=== PATIENT | female | born 1990 | race Caucasian/White ===

== ENCOUNTER → 2016-04-08 | Outpatient (CLI) | payer OTHER ==
[~2016-04-08] MED LIST: PREN29TA PO
== END ==
LOC: HPND 07:20
PROVIDERS: ATTEND Obstetrics & Gynecology
DX: O28.3 Abnormal ultrasonic finding on antenatal screening of mother (principal); Z3A.12 12 weeks gestation of pregnancy
CPT/HCPCS: 76813

== ENCOUNTER → 2016-05-06 | Outpatient (CLI) | payer OTHER | LOC: HPND 07:47 | PROVIDERS: ATTEND Obstetrics & Gynecology | DX: O35.8XX0 Maternal care for other (suspected) fetal abnormality and damage, not applicable or unspecified (principal); O28.5 Abnormal chromosomal and genetic finding on antenatal screening of mother; Z3A.16 16 weeks gestation of pregnancy | CPT/HCPCS: 76811 ==

== ENCOUNTER 2016-05-23 16:10 | Emergency (ER) | payer OTHER ==
[~2016-05-23] VITALS: Ht 160 cm; Wt 56.0 kg
[2016-05-23 16:14] VITALS: BP 118/72; PULSE 86; RESP 20; TEMP 97.8; O2SAT 98
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
[2016-05-23] MEDS ORDERED: PREN29TA PO (22:35)
[2016-05-23 22:57] LABS: HEMATOCRIT 33.3 % (35.0-46.0); MEAN CELL VOLUME 83.5 FL (80.0-100.0); MEAN CORPUSCULAR HEMOGLOBIN 28.9 PG (27.0-34.0); MEAN CORPUSCULAR HGB CONC 34.6 % (32.0-36.0); PLATELET COUNT 255 TH/MM3 (150-450); RED BLOOD COUNT 3.99 MIL/MM3 (4.00-5.30); RED CELL DISTRIBUTION WIDTH 14.4 % (11.6-17.2); REVIEW FLAG FINAL; WHITE BLOOD COUNT 8.3 TH/MM3 (4.0-11.0)
[2016-05-23 23:16] LABS: BACTERIA, URINE OCC /hpf; BLOOD, URINE NEG (NEG); COMMENT (UR) CULT NOT INDICATED; CULTURE IF INDICATED CULT NOT INDICATED; GLUCOSE,URINE NEG (NEG); KETONE, URINE 150 mg/dL (NEG); MUCUS URINE FEW /lpf (OCC); NITRITE,URINE NEG (NEG); PH, URINE 5.5 (5.0-8.5); SQUAMOUS EPITHELIAL CELL URINE 5 /hpf (0-5); URINE COLOR YELLOW (YELLW/STRAW)
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
== END 2016-05-24 00:47 | disposition home or self-care (01) ==
LOC: NEPC 16:10 → HOBED 05-24 00:47
DX: O9A.212 Injury, poisoning and certain other consequences of external causes complicating pregnancy, second trimester (principal); S16.1XXA Strain of muscle, fascia and tendon at neck level, initial encounter; V49.40XA Driver injured in collision with unspecified motor vehicles in traffic accident, initial encounter; Y92.488 Other paved roadways as the place of occurrence of the external cause; Z3A.19 19 weeks gestation of pregnancy
CPT/HCPCS: 72125; 76815; 81001; 85027; 86850; 86900; 86901; 90384; 99284; L0150; J2790

== ENCOUNTER → 2016-06-03 | Outpatient (CLI) | payer OTHER | LOC: HPND 08:12 | PROVIDERS: ATTEND Obstetrics & Gynecology | DX: O35.1XX0 Maternal care for (suspected) chromosomal abnormality in fetus, not applicable or unspecified (principal); O35.8XX0 Maternal care for other (suspected) fetal abnormality and damage, not applicable or unspecified; O28.3 Abnormal ultrasonic finding on antenatal screening of mother; O28.0 Abnormal hematological finding on antenatal screening of mother | CPT/HCPCS: 76816; 76825; 76827; 93325 ==

== ENCOUNTER 2016-11-04 05:39 | Emergency (ER) | payer OTHER ==
[~2016-11-04] VITALS: Ht 160 cm; Wt 60.0 kg
[2016-11-04 05:41] VITALS: BP 120/82; PULSE 120; RESP 16; TEMP 98.4; O2SAT 95
[2016-11-04] MEDS ORDERED: CORT15T TOPICAL (06:02)
[2016-11-04] MEDS ORDERED: CLIN1CAP6 PO (06:02)
[2016-11-04 06:06] VITALS: TEMP 99.3
[2016-11-04 06:27] VITALS: O2SAT 98
[2016-11-04] MEDS ORDERED: KETOROLAC TROMETHAMINE 30 MG/ML (IVP) VIAL IV PUSH ONE ×2 (06:30→10:15)
[2016-11-04] MEDS ORDERED: ONDANSETRON HCL 4 MG/2 ML VIAL IV ONE (06:30)
[2016-11-04] MEDS ORDERED: SODIUM CHLOR 0.9% 1000 ML INJ 1,000 ML IV ONE (06:30)
--- NOTE | 2016-11-04 06:41 | RADRPT ---
EXAM DATE/TIME: 11/04/2016 06:32 [facility] COMPARISON: No previous studies available for comparison. INDICATIONS : Bilateral breast pain. MEDICAL HISTORY : None. SURGICAL HISTORY : None. ENCOUNTER: Initial ACUITY: 3 days PAIN SCORE: 9/10 LOCATION: Bilateral chest FINDINGS: A single view of the chest demonstrates the lungs to be symmetrically aerated without evidence of mas s, infiltrate or effusion. The cardiomediastinal contours are unremarkable. Osseous structures are intact. CONCLUSION: No acute disease. Henri Donnelly MD on November 04, 2016 at 6:39 Board Certified Radiologist. This report was verified electronically.
--- NOTE | 2016-11-04 06:47 | PD ---
HPI Chief Complaint: Pain: Acute or Chronic Time Seen by Provider: 05:51 Travel History International Travel<30 days: No Contact w/Intl Traveler<30days: No Traveled to known affect area: No History of Present Illness HPI The patient is a 26 year old female who presents to the [facility] emergency department with a history of breast pain that she reports began in the right breast 2 weeks ago. The patient reports that she did deliver vaginally a trisomy 21 child on September 16. 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 The patient reports that she has been attempting to wean down her pumping sessions. She reports that she produces a significant amount of milk. She reports that she has been in consultation with the middleware consultant as well as been seen by her SHOEMAKER CUSTOM at [facility] and also evaluated by a [facility] clinic twice. The patient reports that over the last 2 weeks she's had a fever with a MAXIMUM TEMPERATURE of 100.9. She reports that she's had chills and body aches. She reports that both breasts at this time her. The left breast is larger than the right. She reports that she' s had intermittent redness usually in a certain quadrant of the breast. She reports that she's had a rash over the breast that has improved with treatment with an oral antifungal and topical orders. The patient reports that when she saw her rn observation she was told that it was likely related to breast engorgement. She was encouraged to continue to calm and wean as tolerated. The patient reports that she went for a second opinion at a [facility] clinic and was diagnosed with mastitis. The patient was treated with amoxicillin which was not helping, and on of this past week she went to the [facility] clinic again and was given clindamycin. She reports that she's had nausea without vomiting. She reports that she had diarrhea twice on Thursday. She reports that she had a normal bowel movement last yesterday. The patient reports that she became concerned when the pain increased again and her temperature went up to 100.9 prior to arrival. She denies taking any pain medication over the last 2 days as it upsets her stomach. Otherwise on review of systems, the patient denies any recent cough, congestion, shortness of breath except for what she reports is related to the pressure of her breasts on her chest, vomiting, abdominal pain, lower extremity edema, or calf pain. She denies having any urinary or neurologic symptoms. [facility] Past Medical History Narrative Medical The patient's past medical history is significant for none. Diabetes: No Patient Takes Glucophage: No Diminished Hearing: No Medical other: Yes (MASTITIS) Immunizations Current: Yes Tetanus Vaccination: > 5 Years Influenza Vaccination: No ?: Not LMP: 11/03/16 : 1 Para: 1 Past Surgical History Narrative Surgical The patient's past surgical history is significant for a wisdom teeth extraction. Oral Surgery: Yes (WISDOM TEETH) Social History Alcohol Use: No Tobacco Use: No Substance Use: No Allergies-Medications (Allergen,Severity, Reaction): Coded Allergies: latex (Verified Allergy, Severe, Hives, 11/04/16) Reported Meds & Prescriptions Reported Meds & Active Scripts Active Reported Cortisporin Topical (Neomycin/Polymyxin/Bacitr/Hydrocort) 1 Application Oint 1 Applic TOPICAL QID Therapy with this product should be limited to 7 days Clindamycin (Clindamycin HCl) 300 Mg Cap 300 Mg PO Q6H Plus Iron 29-1 mg ( Vit-Iron Carbonyl) 1 Tab Tab 1 Tab PO DAILY Review of Systems Except as stated in HPI: all other systems reviewed are Neg General / Constitutional: Positive: Fever Eyes: No: Visual changes HENT: No: Headaches Cardiovascular: Positive: Chest Pain or Discomfort (chest wall pain, breast pain) Respiratory: No: Cough, Shortness of Breath Gastrointestinal: Positive: Nausea, No: Vomiting, Diarrhea, Abdominal Pain Genitourinary: No: Dysuria Musculoskeletal: Positive: Myalgias, Pain Skin: Positive Breast Lumps, Positive Breast Tenderness, Positive Breast Swelling, No Rash Neurologic: Positive: Weakness (generalized fatigue), No: Focal Abnormalities, Change in Mentation, Slurred Speech, Sensory Disturbance Psychiatric: No: Depression Endocrine: No: Polydipsia Hematologic/Lymphatic: No: Easy Bruising Physical Exam Narrative General: The patient is well-developed well-nourished female in no acute distress. Head and Neck exam: Head is normocephalic atraumatic. Eyes: EOMI, pupils are equal round and reactive to light. Nose: Midline septum with pink mucous membranes Mouth: Dentition unremarkable. Moist mucus membranes. Posterior oropharynx is not erythematous. No tonsillar hypertrophy. Uvula midline. Airway patent. Neck: No palpable lymphadenopathy. No nuchal rigidity. No thyromegaly. Cardiovascular: Sinus tachycardia in the 1 teens to low 120s without murmurs, gallops, or rubs. No pulse deficit to the extremities and simultaneous auscultation and palpation of her radial artery. Lungs: Clear to auscultation bilaterally. No wheezes, rhonchi, or rales. Breast examination: The patient's left breast is enlarged compared to the right. The patient has no focal area of redness. The patient has hyperpigmented papules scattered along bilateral breasts that she reports are healing areas of rash, previously treated with an antifungal which she reports has helped. The patient has no palpable fluctuance or nodules. The patient has milk drainage noted from bilateral breasts worse on the left compared to the right after palpation. No axillary lymphadenopathy. Abdomen: Soft, without tenderness to palpation in all 4 quadrants of the abdomen. No guarding, rebound, or rigidity. Normal bowel sounds are audible. No tenderness on palpation of McBurney's point. Extremities: No clubbing, cyanosis, or edema. 2+ pulses in all 4 extremities. No calf tenderness on palpation. Back: No costovertebral angle tenderness to palpation. Neurologic Exam: Grossly nonfocal. Data Data Last Documented VS Vital Signs Date Time Temp Pulse Resp B/P (MAP) Pulse Ox O2 Delivery O2 Flow Rate FiO2 11/04/16 06:27 98 Room Air 11/04/16 06:06 99.3 11/04/16 05:41 120 16 Orders Orders Complete Blood Count With Diff (11/04/16 06:18) Basic Metabolic Panel (Bmp) (11/04/16 06:18) Blood Culture (11/04/16 06:18) C-Reactive Protein (Crp) (11/04/16 06:18) Urinalysis - C+S If Indicated (11/04/16 06:18) Chest, Single Ap (11/04/16 06:18) Iv Access Insert/Monitor (11/04/16 06:18) Ecg Monitoring (11/04/16 06:18) Oximetry (11/04/16 06:18) Ed Urine Pregnancytest Poc (11/04/16 06:18) Lactic Acid Sepsis Protocol (11/04/16 06:18) Sodium Chlor 0.9% 1000 Ml Inj (Ns 1000 M (11/04/16 06:30) Ondansetron Inj (Zofran Inj) (11/04/16 06:30) Ketorolac Inj (Toradol Inj) (11/04/16 06:30) Us Breast Unilateral (11/04/16 ) Us Breast Unilateral (11/04/16 ) Ceftriaxone Inj (Rocephin Inj) (11/04/16 07:15) Labs Laboratory Tests Test 11/04/16 06:30 White Blood Count 14.3 TH/MM3 Red Blood Count 5.11 MIL/MM3 Hemoglobin 14.6 GM/DL Hematocrit 42.9 % Mean Corpuscular Volume 84.0 FL Mean Corpuscular Hemoglobin 28.5 PG Mean Corpuscular Hemoglobin Concent 34.0 % Red Cell Distribution Width 13.2 % Platelet Count 281 TH/MM3 Mean Platelet Volume 7.4 FL Neutrophils (%) (Auto) 88.9 % Lymphocytes (%) (Auto) 5.0 % Monocytes (%) (Auto) 5.5 % Eosinophils (%) (Auto) 0.4 % Basophils (%) (Auto) 0.2 % Neutrophils # (Auto) 12.7 TH/MM3 Lymphocytes # (Auto) 0.7 TH/MM3 Monocytes # (Auto) 0.8 TH/MM3 Eosinophils # (Auto) 0.1 TH/MM3 Basophils # (Auto) 0.0 TH/MM3 CBC Comment DIFF FINAL Differential Comment Blood Urea Nitrogen 11 MG/DL Creatinine 0.99 MG/DL Random Glucose 95 MG/DL Calcium Level 9.5 MG/DL Sodium Level 136 MEQ/L Potassium Level 3.9 MEQ/L Chloride Level 101 MEQ/L Carbon Dioxide Level 29.2 MEQ/L Anion Gap 6 MEQ/L Estimat Glomerular Filtration Rate 68 ML/MIN Lactic Acid Level 0.9 mmol/L C-Reactive Protein 0.42 MG/DL [facility] Medical Decision Making Medical Screen Exam Complete: Yes Emergency Medical Condition: Yes Medical Record Reviewed: Yes Differential Diagnosis Mastitis, versus ductal obstruction, versus breasting or genetic, versus febrile illness related to pyelonephritis, versus viral syndrome Narrative Course During the course of the patients emergency department visit, the patients history, examination, and differential diagnosis were reviewed with the patient. The patient had IV access obtained and blood work sent for analysis. The patient was placed on a podiatric aide with oximetry and blood pressure monitoring. The patient was initially provided normal saline 1 L IV fluid bolus, Toradol 15 mg IV, Zofran 4 mg IV. The patients laboratory studies and radiologic studies are pending at the conclusion of my shift. The patient's case was checked out to the oncoming emergency physician to disposition the patient based on the conclusion of the patient's workup. Diagnosis Primary Impression: Pain of both breasts Additional Impression: Febrile illness Lynda Kim MD Nov 04, 2016 06:47
[2016-11-04 06:53] LABS: AUTOMATED NEUTROPHIL # 12.7 TH/MM3 (1.8-7.7); BASOPHIL % 0.2 % (0.0-2.0); EOSINOPHIL # 0.1 TH/MM3 (0-0.4); EOSINOPHIL % 0.4 % (0.0-4.0); HEMATOCRIT 42.9 % (35.0-46.0); HEMO FLAGS DIFF FINAL; LYMPHOCYTE # 0.7 TH/MM3 (1.0-4.8); MEAN CORPUSCULAR HEMOGLOBIN 28.5 PG (27.0-34.0); MONO % 5.5 % (0.0-8.0); NEUT % 88.9 % (16.0-70.0); PLATELET COUNT 281 TH/MM3 (150-450); RED BLOOD COUNT 5.11 MIL/MM3 (4.00-5.30); RED CELL DISTRIBUTION WIDTH 13.2 % (11.6-17.2); WHITE BLOOD COUNT 14.3 TH/MM3 (4.0-11.0)
[2016-11-04 07:03] LABS: BICARBONATE 29.2 MEQ/L (21.0-32.0); POTASSIUM 3.9 MEQ/L (3.5-5.1)
[2016-11-04] MEDS ORDERED: cefTRIAXone INJ 1,000 MG in SODIUM CHLORIDE 0.9% INJ 100 ML IV ONE (07:15)
--- NOTE | 2016-11-04 08:03 | RADRPT ---
EXAM DATE/TIME: 11/04/2016 07:34 [facility] COMPARISON: No previous studies available for comparison. INDICATIONS : Abscess. MEDICAL HISTORY : Mastitis. SURGICAL HISTORY : [place] teeth. ENCOUNTER: Initial ACUITY: 2 weeks PAIN SCORE: 10/10 LOCATION: Left breast. EXAM: Focused ultrasound examination of the left breast was performed FINDINGS: Ultrasound examination demonstrates multiple enlarged ducts and hyperemia in the visualized portions of the left breast. No focal mass or drainable fluid collection at the time. CONCLUSION: 1. No sonographic evidence for focal mass or drainable fluid collection at this time. Ronak Graham MD on November 04, 2016 at 8:00 Board Certified Radiologist. This report was verified electronically.
--- NOTE | 2016-11-04 08:13 | RADRPT ---
EXAM DATE/TIME: 11/04/2016 07:24 [place] COMPARISON: No previous studies available for comparison. INDICATIONS : Abscess. MEDICAL HISTORY : Mastitis. SURGICAL HISTORY : [place] teeth. ENCOUNTER: Initial ACUITY: 2 weeks PAIN SCORE: 10/10 LOCATION: Right breast. FINDINGS: Multiple sonographic images of the right breast were performed. No mass or fluid collection is noted. There is no sonographic evidence to suggest breast abscess. Multiple dilated ducts are noted. CONCLUSION: No sonographic evidence of right breast abscess. Wyatt Clifton MD on November 04, 2016 at 8:10 Board Certified Radiologist. This report was verified electronically.
[2016-11-04 08:27] LABS: BLOOD, URINE SMALL (NEG); GLUCOSE,URINE NEG (NEG); KETONE, URINE NEG (NEG); NITRITE,URINE NEG (NEG); PH, URINE 5.5 (5.0-8.5); SQUAMOUS EPITHELIAL CELL URINE <1 /hpf (0-5); URINE COLOR LIGHT-YELLOW (YELLW/STRAW)
[2016-11-04 08:28] LABS: COMMENT (UR) CULT NOT INDICATED; CULTURE IF INDICATED CULT NOT INDICATED
--- NOTE | 2016-11-04 10:16 | PD ---
Physical Exam Date Seen by Provider: Nov 04, 2016 Time Seen by Provider: 10:12 Narrative 26-year-old female came to the emergency room with history of bilateral breast engorgement from her . Patient recently lost her child after a congenital disorder. She is trying to wean off but meanwhile has been getting significant pain. She was also getting fever and was started on antibiotic by her primary care. Please refer to the previous physician's note for history and physical details. Sign out was to follow-up on the blood test result and ultrasound. Patient was given a dose of Rocephin here as well. The breast ultrasound is read by the radiologist as no focal fluid collection for abscesses that can be drained. She has general engorgement. Patient has a leukocytosis but lactic acid is normal. Based on this I'm comfortable discharging the patient home. I had a lengthy discussion with the patient in the room. She does not seem extremely happy with the decision of going home. However I made her understand that hospitalization was not really a necessary alternatives since she was able to tolerate by mouth antibiotic and lactic acid was within normal limits. I advised her to continue taking the clindamycin and warm compress and milk expression. I have ordered another dose of Toradol. Patient will be discharged home on Motrin. Data Data Last Documented VS Vital Signs Date Time Temp Pulse Resp B/P (MAP) Pulse Ox O2 Delivery O2 Flow Rate FiO2 11/04/16 11:01 Orders Orders Complete Blood Count With Diff (11/04/16 06:18) Basic Metabolic Panel (Bmp) (11/04/16 06:18) Blood Culture (11/04/16 06:18) C-Reactive Protein (Crp) (11/04/16 06:18) Urinalysis - C+S If Indicated (11/04/16 06:18) Chest, Single Ap (11/04/16 06:18) Iv Access Insert/Monitor (11/04/16:18) Ecg Monitoring (11/04/16:18) Oximetry (11/04/16:18) Ed Urine Pregnancytest Poc (11/04/16 06:18) Lactic Acid Sepsis Protocol (11/04/16 06:18) Sodium Chlor 0.9% 1000 Ml Inj (Ns 1000 M (11/04/16 06:30) Ondansetron Inj (Zofran Inj) (11/04/16 06:30) Ketorolac Inj (Toradol Inj) (11/04/16 06:30) Us Breast Unilateral (11/04/16 ) Us Breast Unilateral (11/04/16 ) Ceftriaxone Inj (Rocephin Inj) (11/04/16 07:15) Ketorolac Inj (Toradol Inj) (11/04/16 10:15) Labs Laboratory Tests Test 11/04/16 06:30 11/04/16 08:15 White Blood Count 14.3 TH/MM3 Red Blood Count 5.11 MIL/MM3 Hemoglobin 14.6 GM/DL Hematocrit 42.9 % Mean Corpuscular Volume 84.0 FL Mean Corpuscular Hemoglobin 28.5 PG Mean Corpuscular Hemoglobin Concent 34.0 % Red Cell Distribution Width 13.2 % Platelet Count 281 TH/MM3 Mean Platelet Volume 7.4 FL Neutrophils (%) (Auto) 88.9 % Lymphocytes (%) (Auto) 5.0 % Monocytes (%) (Auto) 5.5 % Eosinophils (%) (Auto) 0.4 % Basophils (%) (Auto) 0.2 % Neutrophils # (Auto) 12.7 TH/MM3 Lymphocytes # (Auto) 0.7 TH/MM3 Monocytes # (Auto) 0.8 TH/MM3 Eosinophils # (Auto) 0.1 TH/MM3 Basophils # (Auto) 0.0 TH/MM3 CBC Comment DIFF FINAL Differential Comment Blood Urea Nitrogen 11 MG/DL Creatinine 0.99 MG/DL Random Glucose 95 MG/DL Calcium Level 9.5 MG/DL Sodium Level 136 MEQ/L Potassium Level 3.9 MEQ/L Chloride Level 101 MEQ/L Carbon Dioxide Level 29.2 MEQ/L Anion Gap 6 MEQ/L Estimat Glomerular Filtration Rate 68 ML/MIN Lactic Acid Level 0.9 mmol/L C-Reactive Protein 0.42 MG/DL Urine Color LIGHT-YELLOW Urine Turbidity CLEAR Urine pH 5.5 Urine Specific [place] 1.006 Urine Protein NEG mg/dL Urine Glucose (UA) NEG mg/dL Urine Ketones NEG mg/dL Urine Occult Blood SMALL Urine Nitrite NEG Urine Bilirubin NEG Urine Urobilinogen LESS THAN 2.0 MG/DL Urine Leukocyte Esterase NEG Urine RBC 1 /hpf Urine WBC LESS THAN 1 /hpf Urine Squamous Epithelial Cells <1 /hpf Microscopic Urinalysis Comment CULT NOT INDICATED MDM Supervised Visit with PATRICK: No Diagnosis Primary Impression: Pain of both breasts Additional Impression: Febrile illness Referrals: Primary Care Physician Additional Instruction: Please follow-up with your OB regarding alternatives to stop . Meanwhile continue taking the clindamycin, warm compress and milk expression. Return to the ER if the condition worsens or any other new concerns. Take the medication as per the prescription direction for pain control. Do not take them empty stomach. Med/Other Pt SpecificInfo: Prescription(s) given Scripts Ibuprofen (Ibuprofen) 600 Mg Tab 600 MG PO Q6H Y for Pain/Inflammation, #40 TAB 0 Refills Prov: Umair Cervantes MD 11/04/16 Disposition: 01 DISCHARGE HOME Condition: Stable Umair Cervantes MD Nov 04, 2016 10:16
[2016-11-04] MEDS ORDERED: IBUP-232 PO (10:20)
== END 2016-11-04 11:06 | disposition home or self-care (01) ==
LOC: NEPE 05:39
DX: N64.4 Mastodynia (principal); R50.9 Fever, unspecified; D72.829 Elevated white blood cell count, unspecified; R00.0 Tachycardia, unspecified; R53.1 Weakness; R11.0 Nausea; Z79.899 Other long term (current) drug therapy
CPT/HCPCS: 71010; 76642; 80048; 81001; 83605; 84703; 85025; 86140; 87040; 96361; 96365; 96375; 96376; 99285; J0696; J1885; J2405; J7030